=== PATIENT | female | born 1990 | race Caucasian/White ===

== ENCOUNTER 2019-10-23 14:33 | Day surgery (SDC) | payer MEDICAID ==
[2019-10-17 16:27] LABS: CLARITY,URINE CLEAR (Clear); COLOR,URINE YELLOW (Yellow); GLUCOSE, URINE NEGATIVE (Neg); KETONES,URINE NEGATIVE (Neg); LEUKOCYTE ESTERASE ,URINE NEGATIVE (Neg); NITRITES, URINE NEGATIVE (Neg); OCCULT BLOOD,URINE NEGATIVE (Neg); PROTEIN,URINE NEGATIVE (Neg); UROBILINOGEN,URINE 0.2 E.U/dL (0.2-1.0)
[2019-10-17 16:28] LABS: UA COLLECTION TYPE CLN CATCH MIDSTREAM
[2019-10-17 16:29] LABS: BASOPHILS % (AUTO) 0.6 % (0-1); EOSINOPHILS # (AUTO) 0.1 X10'3 (0-0.9); EOSINOPHILS % (AUTO) 0.9 % (0-6); HEMOGLOBIN 13.9 g/dl (12.0-16.0); LYMPHOCYTES # (AUTO) 2.9 X10'3 (1.1-4.8); LYMPHOCYTES % (AUTO) 45.8 % (21-51); MEAN CORPUSCULAR HEMOGLOBIN 29.4 PG (27.0-31.0); MEAN CORPUSCULAR HGB CONC 33.2 g/dL (33.0-36.5); MEAN CORPUSCULAR VOLUME 88.5 FL (78-98); MEAN PLATELET VOLUME 8.9 FL (7.4-10.4); MONOCYTES # (AUTO) 0.5 X10'3 (0-0.9); MONOCYTES % (AUTO) 7.8 % (2-12); NEUTROPHILS # (AUTO) 2.8 X10'3 (1.8-7.7); NEUTROPHILS % (AUTO) 44.9 % (42-75); PLATELET COUNT 289 X10'3 (140-440); RED BLOOD COUNT 4.75 X10'6 (4.20-5.60); WHITE BLOOD COUNT 6.3 X10'3 (4.5-11.0)
[2019-10-17 16:48] LABS: PARTIAL THROMBOPLASTIN TIME 27 SECONDS (22-32)
[2019-10-17 16:53] LABS: ANION GAP 7 (8-16); BLOOD UREA NITROGEN 9 MG/DL (7-18); BUN/CREATININE RATIO 8.8 (6.6-38.0); CALCIUM 9.3 MG/DL (8.5-10.1); CHLORIDE 106 MMOL/L (99-107); CREATININE 1.02 MG/DL (0.40-0.90); GLUCOSE 87 MG/DL (70-104); POTASSIUM 4.1 MMOL/L (3.5-5.1); SODIUM 142 MMOL/L (135-145); TOTAL CARBON DIOXIDE 29.4 MMOL/L (24-32); eGFR 64 ML/MIN
[2019-10-23] VITALS (7 sets, daily range): BP systolic 99–142; BP diastolic 48–75
[~2019-10-23] VITALS: Ht 152.4 cm; Wt 45.8 kg
[~2019-10-23 14:33] MED LIST: ondansetron/PF 4mg/2ml inj ONE
[2019-10-23] MEDS ORDERED: normal saline 1000ml 1,000 ML IV SCH (14:55)
[2019-10-23] MEDS ORDERED: cefazolin/dext.iso 2gm/50ml 50 ML IV ONE (14:55)
[2019-10-23] MEDS ORDERED: NO HOME MEDS (15:22)
[2019-10-23] MEDS ORDERED: LIDOcaine 1% W/epiNEPHrine 1:100,000 20ml vial ONE ×2 (16:12→17:58)
[2019-10-23] MEDS ORDERED: ceFAZolin 1000mg inj ONE (16:12)
[2019-10-23] MEDS ORDERED: midazolam 2 mg/2 ml injection ONE ×4 (17:48→18:39)
[2019-10-23] MEDS ORDERED: fentaNYL/PF 50MCG/1 ML 2ML syringe ONE (17:48)
[2019-10-23] MEDS ORDERED: HYDROcodone/acetaminophen 10/325mg tab PO PRN (19:25)
[2019-10-23] MEDS ORDERED: HYDROcodone/acetaminophen 5mg/325mg tablet PO PRN (19:25)
== END 2019-10-23 21:00 | disposition home or self-care (01) ==
LOC: SSTAY O 14:33
PROVIDERS: ATTEND Internal Medicine Interventional Cardiology
DX: I49.5 Sick sinus syndrome (principal); Z79.01 Long term (current) use of anticoagulants
CPT/HCPCS: 33208; 36415; 80048; 81003; 85025; 85610; 85730; 93005; 99152; 99153; C1785; C1898; J0690; J2250; J2405; J3010; A4565; A4620; A6258